=== PATIENT | female | born 1970 | race Hispanic/Latino ===

== ENCOUNTER 2017-09-01 08:28 | Emergency (ER) | payer OTHER ==
[2017-09-01 08:49] VITALS: RESP 18; TEMP 98
[2017-09-01] MEDS ORDERED: Sodium Chloride 0.9% 1,000 ML IV STA (08:51)
--- NOTE | 2017-09-01 08:57 | ED PDOC ---
Arrival/HPI - General Chief Complaint: Substance Abuse Time Seen by Provider: 09/01/17 08:44 Historian: Patient, EMS - History of Present Illness Narrative History of Present Illness (Text): 09/01/17 08:50 47 year old female, whose PMH includes herniated disc and GERD, who presents to the emergency department via EMS s/p accidental opioid overdose, prior to arrival. EMS reports patient was found in the car and was given Narcan on the way to the emergency department. Patient reports she has been taking Percocets for many years due to pain caused by herniated discs and last night she believes taking more than usual (3 tablets). Patient states she called her mother and told her "she felt funny" and couldn't sleep. This morning while going to work, she lost consciousness and EMS found her in the car. Patient denies any chest pain, fever, cough, shortness of breath, and denies suicidal ideation. PMD: Dr. Grijalva Time/Duration: Prior to Arrival Symptom Onset: Sudden Symptom Course: Improving Context: Street, [place] Past Medical History - Provider Review Nursing Documentation Reviewed: Yes - Infectious Disease Hx of Infectious Diseases: None - Musculoskeletal/Rheumatological Hx Herniated Disk: Yes - Gastrointestinal Hx Gastroesophageal Reflux: Yes - Psychiatric Hx Substance Use: No - Surgical History Hx Hysterectomy: Yes (Partial) Family/Social History - Physician Review Nursing Documentation Reviewed: Yes Family/Social History: Unknown Family HX Smoking Status: Heavy Smoker > 10 Cigarettes Daily Hx Alcohol Use: No Hx Substance Use: No Allergies/Home Meds Allergies/Adverse Reactions: Allergies No Known Allergies Allergy (Verified 09/01/17 08:43) Home Medications: Home Meds Medication Instructions Recorded Confirmed oxyCODONE [oxyCODONE Immediate 30 mg PO Q6 09/01/17 09/01/17 Release Tab] Review of Systems - Review of Systems Constitutional: absent: Fevers Eyes: absent: Vision Changes Respiratory: absent: SOB Cardiovascular: absent: Chest Pain Gastrointestinal: absent: Abdominal Pain, Vomiting Genitourinary Female: absent: Dysuria Musculoskeletal: absent: Back Pain Skin: absent: Rash Neurological: absent: Headache, Speech Changes Psychiatric: Other (opioid overdose). absent: Suicidal Ideation Physical Exam Vital Signs Reviewed: Yes Vital Signs Temp Pulse Resp BP Pulse Ox 09/01/17 11:30 90 18 119/78 99 09/01/17 10:33 92 H 18 118/76 97 09/01/17 08:45 98 F 128 H 18 127/88 98 Temperature: Afebrile Blood Pressure: Normal Pulse: Tachycardic Respiratory Rate: Normal Appearance: Positive for: Well-Appearing, Non-Toxic, Comfortable Pain Distress: None Mental Status: Positive for: Alert and Oriented X 3 - Systems Exam Head: Present: Atraumatic, Normocephalic Pupils: Present: PERRL Extroacular Muscles: Present: EOMI Conjunctiva: Present: Normal Mouth: Present: Moist Mucous Membranes Respiratory/Chest: Present: Clear to Auscultation, Good Air Exchange. No: Respiratory Distress, Accessory Muscle Use, Wheezes, Rales, Retracting, Rhonchi Cardiovascular: Present: Normal S1, S2, Tachycardic. No: Regular Rate and Rhythm, Murmurs Abdomen: Present: Normal Bowel Sounds. No: Tenderness, Distention, Peritoneal Signs, Rebound, Guarding Lower Extremity: Present: Normal Inspection, NORMAL PULSES, Normal ROM, Neurovascularly Intact, Capillary Refill < 2 s. No: Edema, Cyanosis, Tenderness , Swelling, Erythema, Deformity Neurological: Present: GCS=15, CN II-XII Intact, Speech Normal, Motor Func Grossly Intact, Normal Sensory Function, Normal Cerebellar Funct, Norm Deep Tendon Reflexes, Gait Normal, Memory Normal Skin: Present: Warm, Dry, Normal Color. No: Rashes Psychiatric: Present: Alert, Oriented x 3, Normal Insight, Normal Concentration. No: Suicidal Ideation, Homicidal Ideation Medical Decision Making ED Course and Treatment: 09/01/17 Impression: 47 year old female with tachycardia s/p opioid overdose prior to arrival. Differential Diagnosis included but are not limited to: accidental opioid overdose Plan: -- Urinalysis -- Sodium Chloride -- Reassess and disposition Progress Notes: 09/01/17 13:30 On reevaluation the patient feels better and is in no acute distress. I have discussed the results and plan with the patient, who expresses understanding. Patient given the opportunity to ask question, all questions were answered and there is agreement with the plan to discharge the patient home. Patient is stable for discharge and was advised to be careful with opioid and follow up with PMD. - Lab Interpretations Lab Results: Lab Results 09/01/17 08:41: POC Glucose (mg/dL) 210 H I have reviewed the lab results: Yes - Medication Orders Current Medication Orders: Discontinued Medications Sodium Chloride (Sodium Chloride 0.9%) 1,000 mls @ 999 mls/hr IV .Q1H1M STA Stop: 09/01/17 09:51 Last Admin: 09/01/17 09:04 Dose: 999 mls/hr eMAR Start Stop Document 09/01/17 09:04 [facility] (Rec: 09/01/17 09:04 [id number]) Intravenous Solution Start Date 09/01/17 Start Time 09:04 End Date 09/01/17 End time 10:05 Total Infusion Time 61 - Scribe Statement The provider has reviewed the documentation as recorded by the Scribe Carolyn Mcgovern Provider Scribe Attestation: All medical record entries made by the Scribe were at my direction and personally dictated by me. I have reviewed the chart and agree that the record accurately reflects my personal performance of the history, physical exam, medical decision making, and the department course for this patient. I have also personally directed, reviewed, and agree with the discharge instructions and disposition. Disposition/Present on Arrival - Present on Arrival Any Indicators Present on Arrival: No History of DVT/PE: No History of Uncontrolled Diabetes: No Urinary Catheter: No History of Decub. Ulcer: No History Surgical Site Infection Following: None - Disposition Have Diagnosis and Disposition been Completed?: Yes Diagnosis: Opiate overdose Disposition: HOME/ ROUTINE Disposition Time: 11:54 Patient Plan: Discharge Condition: IMPROVED Discharge Instructions (ExitCare): Narcotic Overdose Additional Instructions: Ms Young, thank you for letting us take care of you today. Your provider was Dr. Thorpe. You were treated for Opiate overdose. The emergency medical care you received today was directed at your acute symptoms. If you were prescribed any medication, please fill it and take as directed. It may take several days for your symptoms to resolve. Return to the Emergency Department if your symptoms worsen, do not improve, or if you have any other problems. Please contact your doctor or call one of the physicians/clinics you have been referred to that are listed on the Patient Visit Information form that is included in your discharge packet. Bring any paperwork you were given at discharge with you along with any medications you are taking to your follow up visit. Our treatment cannot replace ongoing medical care by a primary care provider (PCP) outside of the emergency department. Thank you for allowing the [facility] team to be part of your care today. If you had an X-Ray or CT scan: A Radiologist will review the ED reading if any change in treatment is needed we will contact you. If you had a blood, urine, or wound culture: It will take several days for the results, if any change in treatment is needed we will contact you. If you had an STI test: It will take 48 hours for the results. Please call after 1 week if you have not heard back. Referrals: Bryant Petit MD [Primary Care Provider] - Follow up with primary Forms: [employer] (Cro[place]ian), WORK NOTE
[2017-09-01 11:57] VITALS: BP 119/78; PULSE 90; O2SAT 99
== END 2017-09-01 13:54 | disposition home or self-care (01) ==
LOC: ED 08:28
DX: T40.601A Poisoning by unspecified narcotics, accidental (unintentional), initial encounter (principal); Y92.89 Other specified places as the place of occurrence of the external cause
CPT/HCPCS: 82948; 96360; 99284; J7040